=== PATIENT | female | born 1945 | race Caucasian/White ===

== ENCOUNTER 2019-01-13 07:15 | Inpatient (IN) | payer MEDICARE, OTHER ==
[~2019-01-13 07:15] MED LIST: Acetaminophen 1,000 MG in Premix Bag 1 BAG IV SCH; Famotidine 20 MG/2 ML SDV IVPUSH SCH; Midazolam 1 MG/ML 2 ML SDV ONE; Propofol 200 MG/20 ML SDV ONE; Ropivacaine 49.25 ML, Ketorolac 30 MG, EPINEPHrine 0.5 MG, cloNIDine 80 MCG in Sodium C... INJECT SCH; Scopolamine 1.5 MG Transdermal Patch TRDERM SCH; Tranexamic Acid 2,000 MG in Sodium Chloride 0.9% 100 ML IV ONE; fentaNYL 100 MCG/2 ML SDV ONE; oxyCODONE 5 MG Tab PO PRN
[2019-01-13] MEDS ORDERED: ceFAZolin 1 GM in Premix Bag 1 BAG IV SCH (08:00)
[2019-01-13] MEDS: Lactated Ringers 1,000 ML IV SCH ×2 (08:06→18:27)
--- NOTE | 2019-01-13 08:17 | PCM.PREANE ---
Preanesthetic Assessment - Procedure Proposed Procedure: right total knee arthroplasty - Anesthesia/Transfusion/Family Hx Anesthesia History: Prior Anesthesia Without Reaction Family History of Anesthesia Reaction: No Transfusion History: Prior Transfusion Without Reaction - Review of Systems General: No Symptoms Pulmonary: No Symptoms Cardiovascular: Other (congenital heart murmur, MET>4, denies CP or SOB) Gastrointestinal: No Symptoms Neurological: No Symptoms Other: Reports: None - Physical Assessment NPO Status Date: 01/13/19 NPO Status Time: 00:00 Height: 5 ft 6 in Weight: 77.564 kg ASA Class: 2 Mental Status: Alert & Oriented x3 Airway Class: Mallampati = 3 Dentition: Reports: Normal Dentition ROM/Head Extension: Full Lungs: Clear to Auscultation Cardiovascular: Regular Rate - Allergies Allergies/Adverse Reactions: Allergies Allergy/AdvReac Type Severity Reaction Status Date / Time codeine Allergy Confusion Verified 01/09/19 07:29 Sulfa (Sulfonamide Allergy Nausea and Verified 01/09/19 07:29 Antibiotics) Vomiting - Blood Blood Available: No Product(s) Available: None - Anesthesia Plan Pre-Op Medication Ordered: None - Acknowledgements Anesthesia Type Planned: General Anesthesia, Spinal Pt an Appropriate Candidate for the Planned Anesthesia: Yes Alternatives and Risks of Anesthesia Discussed w Pt/Guardian: Yes Pt/Guardian Understands and Agrees with Anesthesia Plan: Yes PreAnesthesia Questionnaire HEENT History: Reports: Other (See Below) Other HEENT History: wears glasses Cardiovascular History: Reports: Heart Murmur Respiratory History: Reports: None Gastrointestinal History: Reports: Hiatal Hernia Genitourinary History: Reports: None 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: Musculoskeletal History: Reports: Fracture, Osteoarthritis Other Musculoskeletal History: arthritis in knee, hx of fx wrist Neurological History: Reports: None Psychiatric History: Reports: Depression Other Psychiatric History: seasonal depression Endocrine/Metabolic History: Reports: None Hematologic History: Reports: Blood Transfusion(s) Immunologic History: Reports: None Oncologic (Cancer) History: Reports: None Dermatologic History: Reports: Psoriasis - Past Surgical History Head Surgeries/Procedures: Reports: None HEENT Surgical History: Reports: None Cardiovascular Surgical History: Reports: None Respiratory Surgical History: Reports: None GI Surgical History: Reports: Appendectomy, Cholecystectomy Female Surgical History: Reports: D&C, Hysterectomy, Salpingo-Oophorectomy Endocrine Surgical History: Reports: None Neurological Surgical History: Reports: None Musculoskeletal Surgical History: Reports: None Oncologic Surgical History: Reports: None Dermatological Surgical History: Reports: None - SUBSTANCE USE Smoking Status *Q: Never Smoker Recreational Drug Use History: No - HOME MEDS Home Medications: Home Meds Cyanocobalamin (Vitamin B-12) [Cyanocobalamin Injection] 1 injection IM ASDIRECTED 01/09/19 [History] Ergocalciferol (Vitamin D2) [Vitamin D2] 50,000 units PO ASDIRECTED 01/09/19 [ History] - CURRENT (IN HOUSE) MEDS Current Meds: Current Medications Famotidine (Pepcid) 40 mg IVPUSH ONARRIVE [facility] Last Admin: 01/13/19 08:02 Dose: 40 mg Acetaminophen 1,000 mg/ Premix 100 mls @ 400 mls/hr IV ONARRIVE [facility] Last Admin: 01/13/19 08:04 Dose: 400 mls/hr Cefazolin Sodium/Dextrose 1 gm (/ Premix) 50 mls @ 100 mls/hr IV ONCALL MANAN Ropivacaine 49.25 ml/Ketorolac Tromethamine 30 mg/Epinephrine HCl 0.5 mg/ Clonidine HCl 80 mcg/ Sodium Chloride 100 mls @ 50 mls/sec INJECT ASDIRECTED [facility] Lactated Ringer's (Ringers, Lactated) 1,000 mls @ 100 mls/hr IV ASDIRECTED [facility] Last Admin: 01/13/19 08:06 Dose: 100 mls/hr Scopolamine (Transderm-Scop) 1.5 mg TRDERM ONARRIVE [facility] Last Admin: 01/13/19 08:05 Dose: 1.5 mg Discontinued Medications Fentanyl (Sublimaze) Confirm Administered Dose 100 mcg .ROUTE .STK-MED ONE Stop: 01/13/19 07:08 Tranexamic Acid 2,000 mg/ (Sodium Chloride) 120 mls @ 600 mls/hr IV ASDIRECTED ONE Stop: 01/13/19 06:11 Cefazolin Sodium/Dextrose (Ancef) Confirm Administered Dose 50 mls @ as directed .ROUTE .STK-MED ONE Stop: 01/13/19 07:08 Midazolam HCl (Versed 1 Mg/Ml) Confirm Administered Dose 2 mg .ROUTE .STK-MED ONE Stop: 01/13/19 07:09 Propofol (Diprivan 20 Ml) Confirm Administered Dose 600 mg .ROUTE .STK-MED ONE Stop: 01/13/19 07:08 Tranexamic Acid (Cyklokapron) Confirm Administered Dose 2,000 mg .ROUTE .STK- MED ONE Stop: 01/13/19 07:38
[2019-01-13] MEDS ORDERED: ePHEDrine 50 MG/ML SDV ONE (10:09)
[2019-01-13] MEDS ORDERED: Phenylephrine/Normal Saline 100 MCG/ML 10 ML Syringe ONE (10:09)
[2019-01-13] MEDS ORDERED: Sodium Chloride 0.9% 20 ML ONE (10:10)
[2019-01-13] MEDS ORDERED: fentaNYL 100 MCG/2 ML SDV IVPUSH PRN (10:15)
[2019-01-13] MEDS ORDERED: Docusate Sodium 100 MG Cap PO PRN (10:42)
[2019-01-13] MEDS ORDERED: diphenhydrAMINE 25 MG Cap PO PRN (10:42)
[2019-01-13] MEDS ORDERED: Morphine PF 30 MG/30 ML PCA Vial IV PRN (10:42)
[2019-01-13] MEDS ORDERED: Sodium Chloride 0.9% 2.5 ML Syringe FLUSH PRN (10:42)
[2019-01-13] MEDS ORDERED: Bisacodyl 10 MG Supp RECTAL PRN (10:42)
[2019-01-13] MEDS ORDERED: Aluminum Hydroxide/Magnesium Hydroxide/Simethicone Susp 30 ML Cup PO PRN (10:42)
[2019-01-13] MEDS ORDERED: Sodium Chloride 0.9% 10 ML Syringe FLUSH PRN (10:42)
--- NOTE | 2019-01-13 10:58 | PCM.OPNOTE ---
- General Post-Op/Procedure Note Date of Surgery/Procedure: 01/13/19 Operative Procedure(s): R TKA Post-Op Diagnosis: DJD R knee Anesthesia Technique: Moderate Sedation, Spinal Primary Surgeon: Pricilla Hamlin Tower Equipment Repairer: Mita Maldonado Tower Equipment Repairer: Salome Rivero in mLs: 50 Condition: Good Free Text/Narrative:: tt=34 min #[id number]
[2019-01-13] MEDS: Ketorolac 15 MG/ML SDV IVPUSH SCH ×4 (13:32→21:48)
--- NOTE | 2019-01-13 16:25 | CR ---
EXAMINATION: Right knee HISTORY: Arthroplasty COMPARISON: 11/07/2017 TECHNIQUE: 2 views FINDINGS/IMPRESSION: Right total knee hardware is demonstrated in stable position and alignment. Postoperative soft tissue changes are noted.
[2019-01-13] MEDS: Acetaminophen 1,000 MG in Premix Bag 1 BAG IV SCH ×2 (16:47→21:34)
--- NOTE | 2019-01-13 18:18 | OR ---
SURGEON: Pricilla Hamlin MD DATE OF PROCEDURE: 01/13/2019 PREOPERATIVE DIAGNOSIS: Degenerative joint disease, right knee, tricompartmental. POSTOPERATIVE DIAGNOSIS: Degenerative joint disease, right knee, tricompartmental. PROCEDURES: Right total knee arthroplasty using patient-specific instrumentation. ASSISTANTS: 1. PAOLA Muir. 2. Salome Rivero PA-C. ANESTHESIA: Spinal with sedation. ESTIMATED BLOOD LOSS: 50 mL. TOURNIQUET TIME: 34 minutes. COMPLICATIONS: None. DVT PROPHYLAXIS: PAS boot and MARIELA hose to the nonoperative leg. IMPLANTS USED: Shari Persona femoral component size 8 standard (LPS), tibial component size E, 10 mm all-polyethylene articular surface, and 32 mm all-polyethylene patella. INTRAOPERATIVE FINDINGS: Showed tricompartmental degenerative changes, grade 4 chondromalacia. She had complete eburnation of the bone along the medial femoral condyle. No significant synovitis was noted. BRIEF HISTORY: Eva is a 73-year-old female who has had complaint of progressive right knee pain. She had failed conservative treatment. X-rays did show evidence of tricompartmental degenerative changes. Due to her lack of response to conservative treatment, I did recommend surgical intervention. The risks and goals of procedure were discussed with the patient and were documented preoperatively. She agreed to proceed. DESCRIPTION OF PROCEDURE: The patient was properly identified and brought to the operating room. The patient was then transferred from the operating room cart and placed on the operating table in a supine position. Anesthesia was administered by the anesthesia staff. After adequate anesthesia was obtained, a well-padded tourniquet was applied to the surgical lower extremity. Richardson catheter was placed. The lower extremity was then prepped in standard fashion using ChloraPrep solution. It was then sterilely draped. A time-out was performed to ensure correct site and procedure. Preoperative antibiotics were given along with one gram of tranexamic acid IV. The surgical site had been marked preoperatively. An Esmarch was used to exsanguinate the right lower extremity and the tourniquet was inflated. An incision was made over the anterior aspect of the knee. The subcutaneous tissues were dissected down to the level of the fascia. A medial parapatellar approach to the knee was made. A portion of the infrapatellar fat pad was then excised. The distal femur was then exposed. The femoral patient-specific cutting guide was then placed. Pins were also placed. The distal femoral cutting block was placed and the distal femoral cut was made. Instrumentation was then removed. Both Whitesides' line and the epicondylar axis were then marked with electrocautery. The 4-in-1 cutting block was placed. This was placed in a slightly externally rotated position, which corresponded well with the previously drawn lines. The cutting guide was then pinned into position. An Mello wing guide was used to check the depth of resection of our anterior condylar cut and it was felt that no notching would occur. The anterior condylar cut was then made followed by the posterior condylar cut. Both the posterior chamfer and anterior chamfer cuts were then made. The cutting block was then removed along with the excess bony remnants. We then turned our attention to the tibia. The anterior cruciate ligament and posterior cruciate ligament were released and a posterior cruciate ligament retractor was placed to allow the tibia to be pulled anteriorly. The tibial patient-specific guide was then placed on the proximal tibia. This fit anatomically. The pins were then placed. The proximal tibia cutting guide was then placed and screwed into position. The proximal tibial resection was then made with care being taken to protect the patellar tendon. The bony resection was then removed. The remainder of the medial and lateral meniscus were then excised. Care was taken to protect the popliteus tendon. The tibia was then sized to the appropriate size. The distal femur was then elevated. The posterior capsule was stripped off the distal femur both medially and laterally. The posterior capsule along with the medial and lateral gutters were then injected with a standard mixture consisting of clonidine, epinephrine, Toradol, and Ropivacaine, unless any allergies were found preoperatively. The femoral component was then placed onto the distal femur in a slightly lateral position. This fit the femur well. A box cut was then made without difficulty. This was then removed. The tibial trial along with the polyethylene liner was then placed. The knee came easily into full extension and was stable to varus and valgus stressing both in full extension and flexion. Any additional releases were performed at this time. We then returned our attention to the patella. The patella was everted and towel clamps were used to hold the patella in position. It was resected to a 15 millimeter thickness. It was then sized to the appropriate size. It was prepared in the usual fashion after placing the predetermined size clamps. This was placed in a slightly superior and medial position. The clamp was then removed. The patellar trial button was placed. The knee was taken through a range of motion using the no-touch technique. The patella tracked centrally. A drop chun was then placed to check alignment. All instruments were then removed from the knee. The tibial sizer was then placed on the tibia. The tibia was prepared in the usual fashion using the reamer and broach. This was then removed. All bony surfaces were copiously irrigated with Pulsavac solution. They were then suctioned dry. Cement was prepared on the back table in the usual manner. Once it was prepared, the bone ends were again suctioned dry. The tibia was cemented into place first. This was malleted into position. Excess cement was then cleared. The femur was then placed in a similar manner. We placed the polyethylene trial into place and the knee was brought into full extension. An axial load was placed while keeping the knee in full extension. The patella button was also cemented into position and the clamp was used to hold this in place as the cement was allowed to cure. The wound was again copiously irrigated with saline solution using a Pulsavac zyglo technician. Following this 1 g of tranexamic acid was applied to the wound topically. After we had adequate curing of the cement, the knee was again taken through a range of motion. The size of the polyethylene was then determined. The polyethylene trial was then removed. The tibial tray was suctioned to make sure there was no remaining soft tissue or cement. Excess cement was cleared from around the edges of the prosthesis as well. The tourniquet was then deflated. We were able to observe for any excess bleeding and none was noted. Electrocautery was used to maintain hemostasis. An additional gram of tranexamic acid was given IV. The retractors were again placed and the predetermined polyethylene was then placed. This was locked into position without difficulty. The knee was again taken through a range of motion with no change from the prior exam. The fascial layer was closed with Number One Vicryl. The subcutaneous tissues were closed with 2-0 Vicryl. The skin was closed with anderson. Xeroform gauze was placed over the wound and a bulky dressing was applied. The patient was then awakened from anesthesia and transferred back to the operating room cart. They were brought to the recovery room in stable condition. All needle and sponge counts were correct. JOSÉ CUELLAR /[id number]
[2019-01-13] MEDS: ceFAZolin 1 GM in Premix Bag 1 BAG IV SCH (18:20)
[2019-01-13] MEDS: Ondansetron 4 MG/2 ML SDV IVPUSH PRN (18:29)
[2019-01-14] MEDS: ceFAZolin 1 GM in Premix Bag 1 BAG IV SCH (02:00)
[2019-01-14] MEDS: Acetaminophen 1,000 MG in Premix Bag 1 BAG IV SCH (03:09)
[2019-01-14] MEDS: Ketorolac 15 MG/ML SDV IVPUSH SCH ×2 (03:10→04:14)
[2019-01-14] MEDS: Lactated Ringers 1,000 ML IV SCH (03:28)
[2019-01-14] MEDS ORDERED: Morphine 4 MG/ML Syringe IVPUSH PRN (06:00)
[2019-01-14] MEDS ORDERED: Acetaminophen/oxyCODONE 325-5 MG Tab PO PRN (06:00)
[2019-01-14] MEDS: Acetaminophen/oxyCODONE 325-5 MG Tab PO PRN ×4 (07:27→20:25)
[2019-01-14] MEDS: Famotidine 20 MG Tab PO SCH (08:23)
[2019-01-14] MEDS: Celecoxib 100 MG Cap PO SCH ×2 (08:23→20:26)
[2019-01-14] MEDS: Aspirin 325 MG Tab PO SCH ×2 (08:23→20:26)
[2019-01-14] MEDS: Polyethylene Glycol 3350 Powder 17 GM Packet PO SCH (08:24)
--- NOTE | 2019-01-14 08:25 | PCM48HPAN ---
Post Anesthesia Note - EVALUATION WITHIN 48HRS OF ANESTHETIC Vital Signs in Normal Range: Yes Patient Participated in Evaluation: Yes Respiratory Function Stable: Yes Airway Patent: Yes Cardiovascular Function Stable: Yes Hydration Status Stable: Yes Pain Control Satisfactory: Yes Nausea and Vomiting Control Satisfactory: Yes Mental Status Recovered: Yes Resp Rate: 16
[2019-01-14] MEDS ORDERED: Cephalexin 500 MG Cap PO ONE (09:00)
--- NOTE | 2019-01-14 12:14 | PCM.SURGPN ---
<Mita Maldonado - Last Filed: 01/14/19 12:09> - General Info Date of Service: 01/14/19 (0800) Date of Surgery/Procedure: 01/13/19 (s/p RIGHT TKA) POD#: 1 Post-Op Diagnosis: degenerative joint disease, right knee, tricompartmental Admission Diagnosis/Problem: Knee pain Functional Status: Reports: Pain Controlled, Tolerating Diet, Ambulating, Other (Reports she slept well as pain was minimal with no activity. Up in chair for breakfast. Yesterday afternoon, had some N/V after up in chair with PT. Was unable to tolerate soup for lunch, but had a sandwich for supper with no continued nausea and tolerated breakfast without N/V. ) - Review of Systems General: Reports: No Symptoms. Denies: Fever HEENT: Reports: No Symptoms Pulmonary: Reports: No Symptoms. Denies: Shortness of Breath Cardiovascular: Reports: No Symptoms. Denies: Chest Pain, Edema Gastrointestinal: Reports: No Symptoms. Denies: Abdominal Pain, Nausea, Vomiting Genitourinary: Reports: Other (fonseca catheter removed this morning) Musculoskeletal: Reports: Joint Pain (s/p right TKA) Skin: Reports: No Symptoms Neurological: Reports: No Symptoms. Denies: Confusion Psychiatric: Reports: No Symptoms - Patient Data Vitals - Most Recent: Last Vital Signs Temp 36.7 C 01/14/19 07:30 Pulse 60 01/14/19 07:30 Resp 16 01/14/19 08:25 BP 130/59 L 01/14/19 07:30 Pulse Ox 95 01/14/19 07:30 Weight - Most Recent: 77.564 kg I&O - Last 24 Hours: Intake & Output 01/13/19 01/14/19 01/14/19 22:59 06:59 14:59 Intake Total 693 494 0459 Output Total 550 1000 Balance 250 -600 1641 Lab Results Last 24 Hrs: Laboratory Results - last 24 hr 01/14/19 Range/Units 05:40 Hgb 11.2 L (12.0-16.0) g/dL Hct 33.5 L (36.0-46.0) % Med Orders - Current: Current Medications Al Hydroxide/Mg Hydroxide (Mag-Al Plus) 30 ml PO Q4H PRN PRN Reason: Indigestion Aspirin (Aspirin) 325 mg PO BID [facility] Last Admin: 01/14/19 08:23 Dose: 325 mg Bisacodyl (Dulcolax) 10 mg RECTAL DAILY PRN PRN Reason: Constipation Celecoxib (Celebrex) 200 mg PO BID [facility] Last Admin: 01/14/19 08:23 Dose: 200 mg Diphenhydramine HCl (Benadryl) 25 - 50 mg PO Q6H PRN PRN Reason: Itching Docusate Sodium (Colace) 100 mg PO BID PRN PRN Reason: Constipation Famotidine (Pepcid) 40 mg IVPUSH ONARRIVE [facility] Last Admin: 01/13/19 08:02 Dose: 40 mg Famotidine (Pepcid) 40 mg PO DAILY [facility] Last Admin: 01/14/19 08:23 Dose: 40 mg Acetaminophen 1,000 mg/ Premix 100 mls @ 400 mls/hr IV ONARRIVE [facility] Last Admin: 01/13/19 08:04 Dose: 400 mls/hr Cefazolin Sodium/Dextrose 1 gm (/ Premix) 50 mls @ 100 mls/hr IV ONCALL [facility] Ropivacaine 49.25 ml/Ketorolac Tromethamine 30 mg/Epinephrine HCl 0.5 mg/ Clonidine HCl 80 mcg/ Sodium Chloride 100 mls @ 50 mls/sec INJECT ASDIRECTED [facility] Lactated Ringer's (Ringers, Lactated) 1,000 mls @ 100 mls/hr IV ASDIRECTED [facility] Last Admin: 01/14/19 03:28 Dose: 100 mls/hr Morphine Sulfate (Morphine) 1 - 3 mg IVPUSH Q3H PRN PRN Reason: Pain Ondansetron HCl (Zofran) 4 mg IVPUSH Q6H PRN PRN Reason: Nausea/Vomiting Last Admin: 01/13/19 18:29 Dose: 4 mg Oxycodone/Acetaminophen (Percocet 325-5 Mg) 1 - 2 tab PO Q4H PRN PRN Reason: Pain Last Admin: 01/14/19 11:06 Dose: 2 tab Polyethylene Glycol (Miralax) 17 gm PO DAILY [facility] Last Admin: 01/14/19 08:24 Dose: 17 gm Scopolamine (Transderm-Scop) 1.5 mg TRDERM ONARRIVE [facility] Last Admin: 01/13/19 08:05 Dose: 1.5 mg Sodium Chloride (Saline Flush) 10 ml FLUSH ASDIRECTED PRN PRN Reason: Keep Vein Open Sodium Chloride (Saline Flush) 2.5 ml FLUSH ASDIRECTED PRN PRN Reason: Keep Vein Open Discontinued Medications Ephedrine Sulfate (Ephedrine Sulfate) Confirm Administered Dose 50 mg .ROUTE .STK-MED ONE Stop: 01/13/19 10:10 Fentanyl (Sublimaze) Confirm Administered Dose 100 mcg .ROUTE .STK-MED ONE Stop: 01/13/19 07:08 Fentanyl (Sublimaze) 50 mcg IVPUSH Q5M PRN PRN Reason: Pain (severe 7-10) Stop: 01/14/19 10:15 Tranexamic Acid 2,000 mg/ (Sodium Chloride) 120 mls @ 600 mls/hr IV ASDIRECTED ONE Stop: 01/13/19 06:11 Last Admin: 01/13/19 13:31 Dose: Not Given Cefazolin Sodium/Dextrose (Ancef) Confirm Administered Dose 50 mls @ as directed .ROUTE .STK-MED ONE Stop: 01/13/19 07:08 Lidocaine HCl (Xylocaine-Mpf 1%) Confirm Administered Dose 5 mls @ as directed .ROUTE .STK-MED ONE Stop: 01/13/19 10:10 Sodium Chloride (Normal Saline) Confirm Administered Dose 20 mls @ as directed .ROUTE .STK-MED ONE Stop: 01/13/19 10:11 Acetaminophen 1,000 mg/ Premix 100 mls @ 400 mls/hr IV Q6H [facility] Stop: 01/14/19 04:14 Last Admin: 01/14/19 03:09 Dose: 400 mls/hr Cefazolin Sodium/Dextrose 1 gm (/ Premix) 50 mls @ 100 mls/hr IV Q8H [facility] Stop: 01/14/19 02:29 Last Admin: 01/14/19 02:00 Dose: 100 mls/hr Ketorolac Tromethamine (Toradol) 30 mg IVPUSH Q6H [facility] Stop: 01/14/19 05:00 Last Admin: 01/14/19 04:14 Dose: Not Given Midazolam HCl (Versed 1 Mg/Ml) Confirm Administered Dose 2 mg .ROUTE .STK-MED ONE Stop: 01/13/19 07:09 Morphine Sulfate (Morphine Felt Hat Flanging Operator 30 Mg In 30 Ml) 30 mg IV ASDIRECTED PRN; Protocol PRN Reason: Pain Stop: 01/14/19 06:00 Last Admin: 01/13/19 11:31 Dose: 30 mg Oxycodone HCl (Oxycodone) 5 - 10 mg PO Q4H PRN PRN Reason: Pain Stop: 01/14/19 08:00 Last Admin: 01/13/19 14:14 Dose: 10 mg Oxycodone/Acetaminophen (Percocet 325-5 Mg) 1 - 2 tab PO Q4H PRN PRN Reason: Pain Phenylephrine HCl (Phenylephrine In Ns 100 Mcg/Ml) Confirm Administered Dose 1 mg .ROUTE .STK-MED ONE Stop: 01/13/19 10:10 Propofol (Diprivan 20 Ml) Confirm Administered Dose 600 mg .ROUTE .STK-MED ONE Stop: 01/13/19 07:08 Tranexamic Acid (Cyklokapron) Confirm Administered Dose 2,000 mg .ROUTE .STK- MED ONE Stop: 01/13/19 07:38 - Exam Wound/Incisions: Dressing Dry and Intact, No Drainage Quality Assessment: DVT Prophylaxis (SCDs) General: Alert, Oriented, Cooperative, No Acute Distress HEENT: Pupils Equal Lungs: Normal Respiratory Effort Cardiovascular: Regular Rate, Regular Rhythm GI/Abdominal Exam: Soft Extremities: Normal Inspection, Other (AT/EHL/GASTROC 5/5 Sensation grossly intact. PP2+) Skin: Warm, Dry Neurological: Normal Speech, Normal Tone Psy/Mental Status: Alert, Normal Affect, Normal Mood - Problem List Review Problem List Initiated/Reviewed/Updated: Yes - My Orders Last 24 Hours: Active Orders 24 hr Category Date Time Status Urinary Catheter Removal [RC] ASDIRECTED Care 01/14/19 10:43 Active HEMOGLOBIN/HEMATOCRIT,HH [HEME] DAILY Lab 01/15/19 06:00 Ordered Acetaminophen/oxyCODONE [Percocet 325-5 MG] Med 01/14/19 06:00 Active 1 - 2 tab PO Q4H PRN Aspirin Med 01/14/19 09:00 Active 325 mg PO BID Celecoxib [CeleBREX] Med 01/14/19 09:00 Active 200 mg PO BID Famotidine [Pepcid] Med 01/14/19 09:00 Active 40 mg PO DAILY Morphine Med 01/14/19 06:00 Active 1 - 3 mg IVPUSH Q3H PRN Polyethylene Glycol 3350 [MiraLAX] Med 01/14/19 09:00 Active 17 gm PO DAILY Convert IV to Saline Lock [OM.PC] PRN Oth 01/14/19 10:45 Ordered Medication Orders Al Hydroxide/Mg Hydroxide (Mag-Al Plus) 30 ml PO Q4H PRN PRN Reason: Indigestion Aspirin (Aspirin) 325 mg PO BID [facility] Last Admin: 01/14/19 08:23 Dose: 325 mg Bisacodyl (Dulcolax) 10 mg RECTAL DAILY PRN PRN Reason: Constipation Celecoxib (Celebrex) 200 mg PO BID [facility] Last Admin: 01/14/19 08:23 Dose: 200 mg Diphenhydramine HCl (Benadryl) 25 - 50 mg PO Q6H PRN PRN Reason: Itching Docusate Sodium (Colace) 100 mg PO BID PRN PRN Reason: Constipation Famotidine (Pepcid) 40 mg IVPUSH ONARRIVE [facility] Last Admin: 01/13/19 08:02 Dose: 40 mg Famotidine (Pepcid) 40 mg PO DAILY [facility] Last Admin: 01/14/19 08:23 Dose: 40 mg Acetaminophen 1,000 mg/ Premix 100 mls @ 400 mls/hr IV ONARRIVE [facility] Last Admin: 01/13/19 08:04 Dose: 400 mls/hr Cefazolin Sodium/Dextrose 1 gm (/ Premix) 50 mls @ 100 mls/hr IV ONCALL [facility] Ropivacaine 49.25 ml/Ketorolac Tromethamine 30 mg/Epinephrine HCl 0.5 mg/ Clonidine HCl 80 mcg/ Sodium Chloride 100 mls @ 50 mls/sec INJECT ASDIRECTED [facility] Lactated Ringer's (Ringers, Lactated) 1,000 mls @ 100 mls/hr IV ASDIRECTED [facility] Last Admin: 01/14/19 03:28 Dose: 100 mls/hr Infusion: 01/14/19 03:28 Dose: 100 mls/hr Admin: 01/13/19 18:27 Dose: 100 mls/hr Infusion: 01/13/19 18:06 Dose: 100 mls/hr Admin: 01/13/19 08:06 Dose: 100 mls/hr Morphine Sulfate (Morphine) 1 - 3 mg IVPUSH Q3H PRN PRN Reason: Pain Ondansetron HCl (Zofran) 4 mg IVPUSH Q6H PRN PRN Reason: Nausea/Vomiting Last Admin: 01/13/19 18:29 Dose: 4 mg Oxycodone/Acetaminophen (Percocet 325-5 Mg) 1 - 2 tab PO Q4H PRN PRN Reason: Pain Last Admin: 01/14/19 11:06 Dose: 2 tab Admin: 01/14/19 07:27 Dose: 2 tab Polyethylene Glycol (Miralax) 17 gm PO DAILY [facility] Last Admin: 01/14/19 08:24 Dose: 17 gm Scopolamine (Transderm-Scop) 1.5 mg TRDERM ONARRIVE [facility] Last Admin: 01/13/19 08:05 Dose: 1.5 mg Sodium Chloride (Saline Flush) 10 ml FLUSH ASDIRECTED PRN PRN Reason: Keep Vein Open Sodium Chloride (Saline Flush) 2.5 ml FLUSH ASDIRECTED PRN PRN Reason: Keep Vein Open - Assessment Assessment (Free Text/Narrative):: 1. S/P RIGHT TKA using PSI 2. post-hemorrhagic anemia, stable at 11.2 - Plan Plan (Free Text/Narrative):: Anticipate overnight stay as she has not yet begun ambulation in the hallway with PT and needs to be able to walk steps (has 3 steps into her house). Fonseca has been discontinued. IV fluids stopped. DC ENT PHYSICIAN and transition to po medications for pain. DVT prophylaxis : ASA starts today. Continue SCDs. Surgical dressing CDI. Will be removed tomorrow with large AquaCell Bandage applied. <Pricilla Hamlin R - Last Filed: 01/14/19 19:25> - Patient Data Vitals - Most Recent: Last Vital Signs Temp 98.9 F 01/14/19 16:00 Pulse 66 01/14/19 16:00 Resp 18 01/14/19 16:00 BP 142/66 H 01/14/19 16:00 Pulse Ox 96 01/14/19 16:00 I&O - Last 24 Hours: Intake & Output 01/14/19 01/14/19 01/14/19 06:59 14:59 22:59 Intake Total 400 1641 2485 Output Total 1000 500 Balance -600 1641 1985 Lab Results Last 24 Hrs: Laboratory Results - last 24 hr 01/14/19 Range/Units 05:40 Hgb 11.2 L (12.0-16.0) g/dL Hct 33.5 L (36.0-46.0) % Med Orders - Current: Current Medications Al Hydroxide/Mg Hydroxide (Mag-Al Plus) 30 ml PO Q4H PRN PRN Reason: Indigestion Aspirin (Aspirin) 325 mg PO BID [facility] Last Admin: 01/14/19 08:23 Dose: 325 mg Bisacodyl (Dulcolax) 10 mg RECTAL DAILY PRN PRN Reason: Constipation Celecoxib (Celebrex) 200 mg PO BID [facility] Last Admin: 01/14/19 08:23 Dose: 200 mg Diphenhydramine HCl (Benadryl) 25 - 50 mg PO Q6H PRN PRN Reason: Itching Docusate Sodium (Colace) 100 mg PO BID PRN PRN Reason: Constipation Famotidine (Pepcid) 40 mg IVPUSH ONARRIVE [facility] Last Admin: 01/13/19 08:02 Dose: 40 mg Famotidine (Pepcid) 40 mg PO DAILY [facility] Last Admin: 01/14/19 08:23 Dose: 40 mg Acetaminophen 1,000 mg/ Premix 100 mls @ 400 mls/hr IV ONARRIVE [facility] Last Admin: 01/13/19 08:04 Dose: 400 mls/hr Cefazolin Sodium/Dextrose 1 gm (/ Premix) 50 mls @ 100 mls/hr IV ONCALL [facility] Ropivacaine 49.25 ml/Ketorolac Tromethamine 30 mg/Epinephrine HCl 0.5 mg/ Clonidine HCl 80 mcg/ Sodium Chloride 100 mls @ 50 mls/sec INJECT ASDIRECTED [facility] Lactated Ringer's (Ringers, Lactated) 1,000 mls @ 100 mls/hr IV ASDIRECTED [facility] Last Admin: 01/14/19 03:28 Dose: 100 mls/hr Morphine Sulfate (Morphine) 1 - 3 mg IVPUSH Q3H PRN PRN Reason: Pain Ondansetron HCl (Zofran) 4 mg IVPUSH Q6H PRN PRN Reason: Nausea/Vomiting Last Admin: 01/14/19 13:11 Dose: 4 mg Oxycodone/Acetaminophen (Percocet 325-5 Mg) 1 - 2 tab PO Q4H PRN PRN Reason: Pain Last Admin: 01/14/19 15:37 Dose: 2 tab Polyethylene Glycol (Miralax) 17 gm PO DAILY [facility] Last Admin: 01/14/19 08:24 Dose: 17 gm Scopolamine (Transderm-Scop) 1.5 mg TRDERM ONARRIVE [facility] Last Admin: 01/13/19 08:05 Dose: 1.5 mg Sodium Chloride (Saline Flush) 10 ml FLUSH ASDIRECTED PRN PRN Reason: Keep Vein Open Sodium Chloride (Saline Flush) 2.5 ml FLUSH ASDIRECTED PRN PRN Reason: Keep Vein Open Discontinued Medications Ephedrine Sulfate (Ephedrine Sulfate) Confirm Administered Dose 50 mg .ROUTE .STK-MED ONE Stop: 01/13/19 10:10 Fentanyl (Sublimaze) Confirm Administered Dose 100 mcg .ROUTE .STK-MED ONE Stop: 01/13/19 07:08 Fentanyl (Sublimaze) 50 mcg IVPUSH Q5M PRN PRN Reason: Pain (severe 7-10) Stop: 01/14/19 10:15 Tranexamic Acid 2,000 mg/ (Sodium Chloride) 120 mls @ 600 mls/hr IV ASDIRECTED ONE Stop: 01/13/19 06:11 Last Admin: 01/13/19 13:31 Dose: Not Given Cefazolin Sodium/Dextrose (Ancef) Confirm Administered Dose 50 mls @ as directed .ROUTE .STK-MED ONE Stop: 01/13/19 07:08 Lidocaine HCl (Xylocaine-Mpf 1%) Confirm Administered Dose 5 mls @ as directed .ROUTE .STK-MED ONE Stop: 01/13/19 10:10 Sodium Chloride (Normal Saline) Confirm Administered Dose 20 mls @ as directed .ROUTE .STK-MED ONE Stop: 01/13/19 10:11 Acetaminophen 1,000 mg/ Premix 100 mls @ 400 mls/hr IV Q6H [facility] Stop: 01/14/19 04:14 Last Admin: 01/14/19 03:09 Dose: 400 mls/hr Cefazolin Sodium/Dextrose 1 gm (/ Premix) 50 mls @ 100 mls/hr IV Q8H [facility] Stop: 01/14/19 02:29 Last Admin: 01/14/19 02:00 Dose: 100 mls/hr Ketorolac Tromethamine (Toradol) 30 mg IVPUSH Q6H [facility] Stop: 01/14/19 05:00 Last Admin: 01/14/19 04:14 Dose: Not Given Midazolam HCl (Versed 1 Mg/Ml) Confirm Administered Dose 2 mg .ROUTE .STK-MED ONE Stop: 01/13/19 07:09 Morphine Sulfate (Morphine Felt Hat Flanging Operator 30 Mg In 30 Ml) 30 mg IV ASDIRECTED PRN; Protocol PRN Reason: Pain Stop: 01/14/19 06:00 Last Admin: 01/13/19 11:31 Dose: 30 mg Oxycodone HCl (Oxycodone) 5 - 10 mg PO Q4H PRN PRN Reason: Pain Stop: 01/14/19 08:00 Last Admin: 01/13/19 14:14 Dose: 10 mg Oxycodone/Acetaminophen (Percocet 325-5 Mg) 1 - 2 tab PO Q4H PRN PRN Reason: Pain Phenylephrine HCl (Phenylephrine In Ns 100 Mcg/Ml) Confirm Administered Dose 1 mg .ROUTE .STK-MED ONE Stop: 01/13/19 10:10 Propofol (Diprivan 20 Ml) Confirm Administered Dose 600 mg .ROUTE .STK-MED ONE Stop: 01/13/19 07:08 Tranexamic Acid (Cyklokapron) Confirm Administered Dose 2,000 mg .ROUTE .STK- MED ONE Stop: 01/13/19 07:38 - My Orders Last 24 Hours: Active Orders 24 hr Category Date Time Status Urinary Catheter Removal [RC] ASDIRECTED Care 01/14/19 10:43 Active HEMOGLOBIN/HEMATOCRIT,HH [HEME] DAILY Lab 01/15/19 06:00 Ordered Acetaminophen/oxyCODONE [Percocet 325-5 MG] Med 01/14/19 06:00 Active 1 - 2 tab PO Q4H PRN Aspirin Med 01/14/19 09:00 Active 325 mg PO BID Celecoxib [CeleBREX] Med 01/14/19 09:00 Active 200 mg PO BID Famotidine [Pepcid] Med 01/14/19 09:00 Active 40 mg PO DAILY Morphine Med 01/14/19 06:00 Active 1 - 3 mg IVPUSH Q3H PRN Polyethylene Glycol 3350 [MiraLAX] Med 01/14/19 09:00 Active 17 gm PO DAILY Convert IV to Saline Lock [OM.PC] PRN Oth 01/14/19 10:45 Ordered Medication Orders Al Hydroxide/Mg Hydroxide (Mag-Al Plus) 30 ml PO Q4H PRN PRN Reason: Indigestion Aspirin (Aspirin) 325 mg PO BID [facility] Last Admin: 01/14/19 08:23 Dose: 325 mg Bisacodyl (Dulcolax) 10 mg RECTAL DAILY PRN PRN Reason: Constipation Celecoxib (Celebrex) 200 mg PO BID [facility] Last Admin: 01/14/19 08:23 Dose: 200 mg Diphenhydramine HCl (Benadryl) 25 - 50 mg PO Q6H PRN PRN Reason: Itching Docusate Sodium (Colace) 100 mg PO BID PRN PRN Reason: Constipation Famotidine (Pepcid) 40 mg IVPUSH ONARRIVE [facility] Last Admin: 01/13/19 08:02 Dose: 40 mg Famotidine (Pepcid) 40 mg PO DAILY [facility] Last Admin: 01/14/19 08:23 Dose: 40 mg Acetaminophen 1,000 mg/ Premix 100 mls @ 400 mls/hr IV ONARRIVE [facility] Last Admin: 01/13/19 08:04 Dose: 400 mls/hr Cefazolin Sodium/Dextrose 1 gm (/ Premix) 50 mls @ 100 mls/hr IV ONCALL [facility] Ropivacaine 49.25 ml/Ketorolac Tromethamine 30 mg/Epinephrine HCl 0.5 mg/ Clonidine HCl 80 mcg/ Sodium Chloride 100 mls @ 50 mls/sec INJECT ASDIRECTED [facility] Lactated Ringer's (Ringers, Lactated) 1,000 mls @ 100 mls/hr IV ASDIRECTED [facility] Last Admin: 01/14/19 03:28 Dose: 100 mls/hr Infusion: 01/14/19 03:28 Dose: 100 mls/hr Admin: 01/13/19 18:27 Dose: 100 mls/hr Infusion: 01/13/19 18:06 Dose: 100 mls/hr Admin: 01/13/19 08:06 Dose: 100 mls/hr Morphine Sulfate (Morphine) 1 - 3 mg IVPUSH Q3H PRN PRN Reason: Pain Ondansetron HCl (Zofran) 4 mg IVPUSH Q6H PRN PRN Reason: Nausea/Vomiting Last Admin: 01/14/19 13:11 Dose: 4 mg Admin: 01/13/19 18:29 Dose: 4 mg Oxycodone/Acetaminophen (Percocet 325-5 Mg) 1 - 2 tab PO Q4H PRN PRN Reason: Pain Last Admin: 01/14/19 15:37 Dose: 2 tab Admin: 01/14/19 11:06 Dose: 2 tab Admin: 01/14/19 07:27 Dose: 2 tab Polyethylene Glycol (Miralax) 17 gm PO DAILY [facility] Last Admin: 01/14/19 08:24 Dose: 17 gm Scopolamine (Transderm-Scop) 1.5 mg TRDERM ONARRIVE [facility] Last Admin: 01/13/19 08:05 Dose: 1.5 mg Sodium Chloride (Saline Flush) 10 ml FLUSH ASDIRECTED PRN PRN Reason: Keep Vein Open Sodium Chloride (Saline Flush) 2.5 ml FLUSH ASDIRECTED PRN PRN Reason: Keep Vein Open - Plan Plan (Free Text/Narrative):: 1928 Patient seen and examined. Agree with the above note. She did have some difficulty with pain management initially today. She states that her pain has improved. She is currently taking the oral medication regularly. Hemoglobin is stable. 1. Continue current pain management 2. Aspirin for DVT prophylaxis 3. Continue with physical therapy and mobilization 4. Plan for discharge home tomorrow if she continues to progress rrk
[2019-01-14] MEDS: Ondansetron 4 MG/2 ML SDV IVPUSH PRN (13:11)
[2019-01-15] MEDS: Acetaminophen/oxyCODONE 325-5 MG Tab PO PRN ×2 (01:19→05:23)
[2019-01-15] MEDS: Famotidine 20 MG Tab PO SCH (08:27)
[2019-01-15] MEDS: Aspirin 325 MG Tab PO SCH (08:27)
[2019-01-15] MEDS: Polyethylene Glycol 3350 Powder 17 GM Packet PO SCH (08:28)
[2019-01-15] MEDS: Celecoxib 100 MG Cap PO SCH (08:28)
[2019-01-15 11:35] VITALS: BP 178/80
--- NOTE | 2019-01-17 08:47 | PCM.DCSUM1 ---
Discharge Summary - Hospital Course Free Text/Narrative:: document #[id number] - Discharge Data Discharge Date: 01/15/19 Discharge Disposition: Home, Self-Care 01 Condition: Good - Patient Summary/Data Operative Procedure(s) Performed: R TKA Consults: Consultations 01/13/19 10:43 PT Evaluation and Treatment [CONS] Routine - Patient Instructions Other/Special Instructions: REFER TO DR. PRICILLA RODRIGUEZ'S POST-OPERATIVE PATIENT INSTRUCTIONS FOR TOTAL KNEE ARTHROPLASTY - Discharge Plan Prescriptions/Med Rec: Acetaminophen/oxyCODONE [Percocet 325-5 MG] 1 - 2 tab PO Q4H PRN #60 tablet PRN Reason: Pain Aspirin 325 mg PO BID #60 tablet Celecoxib [CeleBREX] 200 mg PO DAILY #30 cap Docusate Sodium [Colace] 100 mg PO BID PRN #60 cap PRN Reason: Constipation Polyethylene Glycol 3350 [MiraLAX] 17 gm PO DAILY #600 gram Home Medications: Home Meds Cyanocobalamin (Vitamin B-12) [Cyanocobalamin Injection] 1 injection IM ASDIRECTED 01/09/19 [History] Ergocalciferol (Vitamin D2) [Vitamin D2] 50,000 units PO ASDIRECTED 01/09/19 [ History] Acetaminophen/oxyCODONE [Percocet 325-5 MG] 1 - 2 tab PO Q4H PRN #60 tablet [Rx] Aspirin 325 mg PO BID #60 tablet 01/15/19 [Rx] Celecoxib [CeleBREX] 200 mg PO DAILY #30 cap 01/15/19 [Rx] Docusate Sodium [Colace] 100 mg PO BID PRN #60 cap 01/15/19 [Rx] Polyethylene Glycol 3350 [MiraLAX] 17 gm PO DAILY #600 gram 01/15/19 [Rx] Patient Handouts: Acetaminophen; Oxycodone tablets, Celecoxib capsules, Total Knee Replacement, Care After, [id number], Aspirin, ASA oral tablets, Docusate capsules, Polyethylene Glycol powder Referrals: rPicilla Rodriguez MD [Physician] - 02/25/19 9:30 am Mita Maldonado NP [Nurse Practitioner] - 01/24/19 9:40 am - Discharge Summary/Plan Comment DC Time >30 min.: No - Patient Data Vitals - Most Recent: Last Vital Signs Temp 36.8 C 01/15/19 11:32 Pulse 76 01/15/19 11:32 Resp 16 01/15/19 11:32 BP 178/80 H 01/15/19 11:32 Pulse Ox 98 01/15/19 11:32 Weight - Most Recent: 80.5 kg Med Orders - Current: Current Medications Discontinued Medications Al Hydroxide/Mg Hydroxide (Mag-Al Plus) 30 ml PO Q4H PRN PRN Reason: Indigestion Aspirin (Aspirin) 325 mg PO BID [facility] Last Admin: 01/15/19 08:27 Dose: 325 mg Bisacodyl (Dulcolax) 10 mg RECTAL DAILY PRN PRN Reason: Constipation Celecoxib (Celebrex) 200 mg PO BID [facility] Last Admin: 01/15/19 08:28 Dose: 200 mg Diphenhydramine HCl (Benadryl) 25 - 50 mg PO Q6H PRN PRN Reason: Itching Docusate Sodium (Colace) 100 mg PO BID PRN PRN Reason: Constipation Ephedrine Sulfate (Ephedrine Sulfate) Confirm Administered Dose 50 mg .ROUTE .K-MED ONE Stop: 01/13/19 10:10 Famotidine (Pepcid) 40 mg IVPUSH ONARRIVE [facility] Last Admin: 01/13/19 08:02 Dose: 40 mg Famotidine (Pepcid) 40 mg PO DAILY [facility] Last Admin: 01/15/19 08:27 Dose: 40 mg Fentanyl (Sublimaze) Confirm Administered Dose 100 mcg .ROUTE .K-MED ONE Stop: 01/13/19 07:08 Fentanyl (Sublimaze) 50 mcg IVPUSH Q5M PRN PRN Reason: Pain (severe 7-10) Stop: 01/14/19 10:15 Acetaminophen 1,000 mg/ Premix 100 mls @ 400 mls/hr IV ONARRIVE [facility] Last Admin: 01/13/19 08:04 Dose: 400 mls/hr Cefazolin Sodium/Dextrose 1 gm (/ Premix) 50 mls @ 100 mls/hr IV ONCALL [facility] Ropivacaine 49.25 ml/Ketorolac Tromethamine 30 mg/Epinephrine HCl 0.5 mg/ Clonidine HCl 80 mcg/ Sodium Chloride 100 mls @ 50 mls/sec INJECT ASDIRECTED [facility] Lactated Ringer's (Ringers, Lactated) 1,000 mls @ 100 mls/hr IV ASDIRECTED MANAN Last Admin: 01/14/19 03:28 Dose: 100 mls/hr Tranexamic Acid 2,000 mg/ (Sodium Chloride) 120 mls @ 600 mls/hr IV ASDIRECTED ONE Stop: 01/13/19 06:11 Last Admin: 01/13/19 13:31 Dose: Not Given Cefazolin Sodium/Dextrose (Ancef) Confirm Administered Dose 50 mls @ as directed .ROUTE .STK-MED ONE Stop: 01/13/19 07:08 Lidocaine HCl (Xylocaine-Mpf 1%) Confirm Administered Dose 5 mls @ as directed .ROUTE .STK-MED ONE Stop: 01/13/19 10:10 Sodium Chloride (Normal Saline) Confirm Administered Dose 20 mls @ as directed .ROUTE .STK-MED ONE Stop: 01/13/19 10:11 Acetaminophen 1,000 mg/ Premix 100 mls @ 400 mls/hr IV Q6H [facility] Stop: 01/14/19 04:14 Last Admin: 01/14/19 03:09 Dose: 400 mls/hr Cefazolin Sodium/Dextrose 1 gm (/ Premix) 50 mls @ 100 mls/hr IV Q8H [facility] Stop: 01/14/19 02:29 Last Admin: 01/14/19 02:00 Dose: 100 mls/hr Ketorolac Tromethamine (Toradol) 30 mg IVPUSH Q6H [facility] Stop: 01/14/19 05:00 Last Admin: 01/14/19 04:14 Dose: Not Given Midazolam HCl (Versed 1 Mg/Ml) Confirm Administered Dose 2 mg .ROUTE .STK-MED ONE Stop: 01/13/19 07:09 Morphine Sulfate (Morphine Electric Cutter Operator 30 Mg In 30 Ml) 30 mg IV ASDIRECTED PRN; Protocol PRN Reason: Pain Stop: 01/14/19 06:00 Last Admin: 01/13/19 11:31 Dose: 30 mg Morphine Sulfate (Morphine) 1 - 3 mg IVPUSH Q3H PRN PRN Reason: Pain Ondansetron HCl (Zofran) 4 mg IVPUSH Q6H PRN PRN Reason: Nausea/Vomiting Last Admin: 01/14/19 13:11 Dose: 4 mg Oxycodone HCl (Oxycodone) 5 - 10 mg PO Q4H PRN PRN Reason: Pain Stop: 01/14/19 08:00 Last Admin: 01/13/19 14:14 Dose: 10 mg Oxycodone/Acetaminophen (Percocet 325-5 Mg) 1 - 2 tab PO Q4H PRN PRN Reason: Pain Oxycodone/Acetaminophen (Percocet 325-5 Mg) 1 - 2 tab PO Q4H PRN PRN Reason: Pain Last Admin: 01/15/19 05:23 Dose: 2 tab Phenylephrine HCl (Phenylephrine In Ns 100 Mcg/Ml) Confirm Administered Dose 1 mg .ROUTE .STK-MED ONE Stop: 01/13/19 10:10 Polyethylene Glycol (Miralax) 17 gm PO DAILY [facility] Last Admin: 01/15/19 08:28 Dose: 17 gm Propofol (Diprivan 20 Ml) Confirm Administered Dose 600 mg .ROUTE .STK-MED ONE Stop: 01/13/19 07:08 Scopolamine (Transderm-Scop) 1.5 mg TRLA [facility] ONARRIVE [facility] Last Admin: 01/13/19 08:05 Dose: 1.5 mg Sodium Chloride (Saline Flush) 10 ml FLUSH ASDIRECTED PRN PRN Reason: Keep Vein Open Sodium Chloride (Saline Flush) 2.5 ml FLUSH ASDIRECTED PRN PRN Reason: Keep Vein Open Tranexamic Acid (Cyklokapron) Confirm Administered Dose 2,000 mg .ROUTE .STK- MED ONE Stop: 01/13/19 07:38
== END 2019-01-15 11:35 | disposition home or self-care (01) | DRG 470 ==
LOC: MW.SDS 07:15 → MW.MS 09:42 → MW.SDS 14:17
PROVIDERS: ADMIT Orthopaedic Surgery; ATTEND Orthopaedic Surgery
PROC: 0SRC0J9 Replacement of Right Knee Joint with Synthetic Substitute, Cemented, Open Approach (ICD-10-PCS; principal; 2019-01-13)
DX: M17.11 Unilateral primary osteoarthritis, right knee (principal); M94.261 Chondromalacia, right knee; F33.9 Major depressive disorder, recurrent, unspecified; D50.0 Iron deficiency anemia secondary to blood loss (chronic); L40.9 Psoriasis, unspecified; R01.1 Cardiac murmur, unspecified; E55.9 Vitamin D deficiency, unspecified; E53.8 Deficiency of other specified B group vitamins; K44.9 Diaphragmatic hernia without obstruction or gangrene; Z88.5 Allergy status to narcotic agent; Z88.2 Allergy status to sulfonamides; Z90.49 Acquired absence of other specified parts of digestive tract; Z90.710 Acquired absence of both cervix and uterus; Z79.899 Other long term (current) drug therapy
CPT/HCPCS: 36415; 73560-26-RT; 73560-RT; 85014; 85018; 86850; 86900; 86901; 97116-GP; 97161-GP; 97530-GP; A9270-GY; C1713; C1776; J0131; J0171; J0690; J0735; J1885; J2001; J2250; J2274; J2370; J2405; J2704; J2795; J3010; J3490; J7050; J7120